=== PATIENT | male | born 1985 | race Caucasian/White ===

== ENCOUNTER 2016-10-03 14:03 | Emergency (ER) | payer OTHER | END 2016-10-03 15:00 | disposition home or self-care (01) | LOC: ER 14:03 | DX: J20.9 Acute bronchitis, unspecified (principal); F17.210 Nicotine dependence, cigarettes, uncomplicated | CPT/HCPCS: 99283-25 ==

== ENCOUNTER 2016-11-18 20:27 | Emergency (ER) | payer OTHER | END 2016-11-18 22:20 | disposition home or self-care (01) | LOC: ER 20:27 | DX: M54.6 Pain in thoracic spine (principal); X50.0XXA Overexertion from strenuous movement or load, initial encounter; Y92.009 Unspecified place in unspecified non-institutional (private) residence as the place of occurrence of the external cause; F17.210 Nicotine dependence, cigarettes, uncomplicated | CPT/HCPCS: 72072; 96372; 99283-25 ==